=== PATIENT | male | born 1970 | race Caucasian/White ===

== ENCOUNTER 2019-01-09 06:11 | Inpatient (IN) | payer OTHER ==
[2019-01-08 15:45] VITALS: BMI 28.5
[2019-01-09] MEDS ORDERED: fentaNYL CITRATE 250 MCG/5 ML VIAL ONE (07:03)
[2019-01-09] MEDS ORDERED: SUCCINYLCHOLINE CHLORIDE 200 MG/10 ML SYRINGE ONE (07:04)
[2019-01-09] MEDS ORDERED: ROCURONIUM BROMIDE 50 MG/5 ML VIAL ONE (07:04)
[2019-01-09] MEDS ORDERED: PROPOFOL 20 ML ONE ×13 (07:04→10:53)
[2019-01-09] MEDS ORDERED: DEXAMETHASONE SOD PHOSPHATE 4 MG/1 ML VIAL ONE (07:05)
[2019-01-09] MEDS ORDERED: ONDANSETRON 4 MG/2 ML VIAL ONE (07:05)
[2019-01-09] MEDS ORDERED: LIDOCAINE HCL/PF 2% SDV 5ML VIAL ONE (07:05)
[2019-01-09] MEDS ORDERED: LIDOCAINE 1%-EPI 1:100,000 30 ML MDV IJ ONE (07:08)
[2019-01-09] MEDS ORDERED: THROMBIN (BOVINE) 5,000 UNIT VIAL TP ONE (07:08)
[2019-01-09] MEDS ORDERED: BUPIVACAINE HCL/PF 0.5% (5MG/ML) 10 ML VIAL ONE ×2 (07:08→07:24)
[2019-01-09] MEDS ORDERED: BUPIVACAINE LIPOSOME/PF (EXPAREL) 266 MG/20 ML VIAL ONE (07:23)
[2019-01-09] MEDS ORDERED: MIDAZOLAM HCL 2 MG/2 ML SINGLE DOSE VIAL ONE ×3 (07:24→08:08)
[2019-01-09] MEDS ORDERED: GENTAMICIN SO4 80 MG/2 ML VIAL ONE ×2 (07:27→10:54)
[2019-01-09] MEDS ORDERED: SCOPOLAMINE HYDROBROMIDE 1 PATCH PATCH.TD72 ONE (07:42)
--- NOTE | 2019-01-09 08:09 | HP ---
History & Physical Update - History History: No Change - Physical Physical: No Change - Assessment Assessment: No Change - Plan Plan: No Change
[2019-01-09] MEDS ORDERED: HYDROmorphone HCl 2 MG/ML VIAL ONE (08:28)
[2019-01-09] MEDS ORDERED: KETAMINE HCL 200 MG/20 ML VIAL ONE (08:29)
[2019-01-09] MEDS ORDERED: VANCOMYCIN 1,000 MG VIAL (RESTRICTED TO ID ONLY) IVPB ONE (08:30)
[2019-01-09] MEDS ORDERED: VANCOMYCIN 1,000 MG VIAL (RESTRICTED TO ID ONLY) ONE (08:46)
[2019-01-09] MEDS ORDERED: ceFAZolin SODIUM 1 GM VIAL ONE (08:46)
[2019-01-09] MEDS ORDERED: ceFAZolin SODIUM 1 GM VIAL IVPB ONE (08:50)
[2019-01-09] MEDS ORDERED: GENTAMICIN SO4 80 MG/2 ML VIAL IVPB ONE (09:03)
[2019-01-09] MEDS ORDERED: BACITRACIN 50,000 UNITS VIAL TP ONE (09:03)
[2019-01-09] MEDS ORDERED: ONDANSETRON 4 MG/2 ML VIAL IVPUSH PRN ×2 (09:19→12:00)
[2019-01-09] MEDS ORDERED: DOCUSATE SODIUM 100 MG CAPSULE (FP) PO PRN (09:24)
[2019-01-09] MEDS ORDERED: NALOXONE HCL 0.4 MG/ML VIAL IVPUSH PRN (09:24)
[2019-01-09] MEDS ORDERED: ACETAMINOPHEN 1000 MG/100 ML VIAL (NON FORMULARY) IVPB SCH (09:30)
[2019-01-09] MEDS ORDERED: LACTATED RINGERS SOLUTION 1,000 ML IV SCH (09:30)
[2019-01-09] MEDS ORDERED: GLYCOPYRROLATE 0.2 MG/1 ML VIAL ONE (10:25)
[2019-01-09] MEDS ORDERED: NEOSTIGMINE METHYLSULFATE 0.5 MG/1 ML - 10 ML MDV ONE (10:25)
[2019-01-09] MEDS ORDERED: diphenhydrAMINE HCL 25 MG CAPSULE (FP) PO PRN (12:00)
[2019-01-09] MEDS ORDERED: ONDANSETRON 4 MG/2 ML VIAL IVPUSH ONE (12:15)
[2019-01-09] MEDS ORDERED: diazePAM 5 MG TABLET ONE (12:51)
[2019-01-09] MEDS ORDERED: diazePAM 5 MG TABLET PO ONE (13:00)
[2019-01-09] MEDS ORDERED: traMADol HCL 50 MG TABLET PO ONE (13:00)
[2019-01-09] MEDS ORDERED: PATIENT'S OWN MEDICATION (NON-FORMULARY) (Dolutegravir/Rilpivirine [Juluca 50-25 Mg Tablet PO SCH (14:00)
--- NOTE | 2019-01-09 14:18 | PN ---
Progress Note, Physician Chief Complaint: patient seen s/p cervical spine surgery - Current Medication List Current Medications: Active Medications Acetaminophen (Ofirmev Injection -) 1,000 mg IVPB Q6H [facility] Stop: 01/10/19 04:31 Aspirin (Ecotrin -) 81 mg PO DAILY [facility] Diazepam (Valium -) 5 mg PO Q8H [facility] Diphenhydramine HCl (Benadryl -) 25 mg PO Q6H PRN PRN Reason: FOR ITCHING Docusate Sodium (Colace -) 100 mg PO TID [facility] Duloxetine HCl (Cymbalta -) 60 mg PO DAILY [facility] Fentanyl (Sublimaze Injection -) 50 mcg IVPUSH [id number] PRN PRN Reason: PAIN-PACU ORDER X 4 DOSES ONLY Heparin Sodium (Porcine) (Heparin -) 5,000 unit SQ TID [facility] Hydromorphone HCl (Dilaudid -) 2 mg PO Q3H PRN PRN Reason: PAIN LEVEL 4 - 6 Hydromorphone HCl (Dilaudid -) 4 mg PO Q3H PRN PRN Reason: PAIN LEVEL 7 - 10 Cefazolin Sodium (Ancef 1 Gm Premixed Ivpb -) 1 gm in 50 mls @ 100 mls/hr IVPB Q8H-IV [facility] Stop: 01/10/19 16:59 Lactated Ringer's (Lactated Ringers Solution) 1,000 ml in 1,000 mls @ 125 mls/ hr IV ASDIR [facility] Naloxone HCl (Narcan -) 0.4 mg IVPUSH PRN PRN PRN Reason: RESPIRATORY DEPRESSION Non-Formulary Medication (Dolutegravir/Rilpivirine [Juluca 50-25 Mg Tablet]) 1 each PO DAILY [facility] Ondansetron HCl (Zofran Injection) 4 mg IVPUSH Q6H [facility] Stop: 01/10/19 03:31 Ondansetron HCl (Zofran Injection) 4 mg IVPUSH Q6H PRN PRN Reason: NAUSEA Rosuvastatin Calcium (Crestor -) 40 mg PO DAILY [facility] Tramadol HCl (Ultram -) 50 mg PO Q6H [facility] - Objective Vital Signs: Vital Signs Temperature 98.3 F 01/09/19 11:45 Pulse Rate 70 01/09/19 12:15 Respiratory Rate 18 01/09/19 12:15 Blood Pressure 134/72 01/09/19 12:15 O2 Sat by Pulse Oximetry (%) 100 01/09/19 12:15 Constitutional: Yes: Calm Neck: Yes: Other (neck brace with yovanny drain serosangionus drainage) Cardiovascular: Yes: Regular Rate and Rhythm, S1, S2 Respiratory: Yes: CTA Bilaterally Gastrointestinal: Yes: Normal Bowel Sounds, Soft Edema: No Neurological: Yes: Alert, Oriented, Other (moving all 4 extremites sensory intact) Problem List - Problems (1) S/P spinal surgery Assessment/Plan: c6 corpectomy ,lordosis correction pain control neck brace stool softners clear liquid diet ct scan of c spine done dvt ppx Code(s): Z98.890 - OTHER SPECIFIED POSTPROCEDURAL STATES (2) HLD (hyperlipidemia) Assessment/Plan: statin Code(s): E78.5 - HYPERLIPIDEMIA, UNSPECIFIED
--- NOTE | 2019-01-09 14:33 | OP ---
Operative Note - Note: Operative Date: 01/09/19 Pre-Operative Diagnosis: Cervical spondylosis Operation: s/p Cervical C6 corpectomy with CAGE and anterior plate placement Surgeon: Noe Campbell Division Sales Manager: Parisa Gilbert Anesthesiologist/ASSOCIATE PROFESSOR OF PSYCHOLOGY: Nayeli Levi Anesthesia: General Estimated Blood Loss (mls): 50 Drains, Volume Out (mls): 200 (hernandez) Fluid Volume Replaced (mls): 1,000 Operative Report Dictated: Yes
[2019-01-09] MEDS: ONDANSETRON 4 MG/2 ML VIAL IVPUSH SCH ×2 (15:07→21:59)
[2019-01-09] MEDS: traMADol HCL 50 MG TABLET PO SCH ×2 (15:08→21:58)
[2019-01-09] MEDS: LACTATED RINGERS SOLUTION 1,000 ML/1,000 ML INFUS.BAG IV SCH (15:15)
[2019-01-09] MEDS: DOCUSATE SODIUM 100 MG CAPSULE (FP) PO SCH ×3 (15:16→22:15)
[2019-01-09] MEDS: HEPARIN NA (PORCINE) 5,000 UNITS/ML 1ML VIAL SQ SCH ×2 (15:16→22:00)
[2019-01-09] MEDS: diazePAM 5 MG TABLET PO SCH ×2 (16:52→19:27)
[2019-01-09] MEDS: ACETAMINOPHEN 1000 MG/100 ML VIAL (NON FORMULARY) IVPB SCH ×2 (16:52→22:31)
[2019-01-09] MEDS: HYDROmorphone HCL 2 MG TABLET PO PRN (16:53)
[2019-01-09] MEDS: RILPIVIRINE HCL 25 MG TABLET PO SCH (16:59)
[2019-01-09] MEDS: DOLUTEGRAVIR SODIUM 50 MG TABLET (NON-FORMULARY) PO SCH (16:59)
[2019-01-09] MEDS ORDERED: PT OWN MED DRAWER 7, Y5N ONE (18:40)
[2019-01-09] MEDS: CEFAZOLIN 1 GM/D5W 1 GM/50 ML BAG IVPB SCH ×2 (18:43→19:53)
[2019-01-09] MEDS ORDERED: HEPARIN NA (PORCINE) 5,000 UNITS/ML 1ML VIAL SQ SCH (20:00)
[2019-01-09] MEDS: diazePAM 5 MG TABLET PO PRN (20:16)
[2019-01-10] MEDS ORDERED: PT OWN MED DRAWER 7, Y5N ONE (00:55)
[2019-01-10] MEDS ORDERED: ceFAZolin SODIUM 1 GM VIAL ONE ×2 (01:37→09:56)
[2019-01-10] MEDS ORDERED: DEXTROSE 5%-WATER - 50 ML IVPB ONE ×2 (01:37→09:56)
[2019-01-10] MEDS: CEFAZOLIN 1 GM in DEXTROSE 5%-WATER - 50 ML IVPB SCH ×2 (01:58→09:58)
[2019-01-10] MEDS: traMADol HCL 50 MG TABLET PO SCH ×3 (03:34→09:30)
[2019-01-10] MEDS: ONDANSETRON 4 MG/2 ML VIAL IVPUSH SCH ×2 (03:36→09:30)
[2019-01-10] MEDS: LACTATED RINGERS SOLUTION 1,000 ML/1,000 ML INFUS.BAG IV SCH ×2 (03:38→13:22)
[2019-01-10] MEDS: diazePAM 5 MG TABLET PO PRN ×2 (03:44→09:58)
[2019-01-10] MEDS: ACETAMINOPHEN 1000 MG/100 ML VIAL (NON FORMULARY) IVPB SCH (04:30)
[2019-01-10] MEDS: HEPARIN NA (PORCINE) 5,000 UNITS/ML 1ML VIAL SQ SCH ×2 (06:47→13:29)
[2019-01-10] MEDS: DOCUSATE SODIUM 100 MG CAPSULE (FP) PO SCH ×2 (06:57→13:28)
[2019-01-10 07:53] LABS: HEMATOCRIT 39.4 % (35.4-49); HEMOGLOBIN 13.4 GM/dL (11.7-16.9); MCH 31.2 pg (25.7-33.7); MCHC 34.1 g/dl (32.0-35.9); MEAN CELL VOLUME 91.5 fl (80-96); MEAN PLT VOLUME 8.5 fl (7.5-11.1); RBC 4.31 M/mm3 (4.00-5.60); RDW 13.3 % (11.9-15.9); WHITE BLOOD COUNT 11.6 K/mm3 (4.0-10.0)
--- NOTE | 2019-01-10 09:00 | PN ---
Progress Note (short form) - Note Progress Note: POD 1, s/p Cervical C6 corpectomy with CAGE and anterior plate placement Pt seen and examined. Reports significant pain overnight which was finally relieved with Dilaudid PO and additional Valium. Has been oob to the restroom without issue, voiding. Tolerating soft diet. Reports improvement in his UE tingling. Denies cp/sob, n/v/d, calf pain/edema. Vital Signs Temp 97.4 F L 01/10/19 02:00 Pulse 88 01/10/19 02:00 Resp 16 01/10/19 02:00 BP 123/73 01/10/19 02:00 Pulse Ox 97 01/09/19 21:00 Intake & Output 01/09/19 01/09/19 01/10/19 11:59 23:59 11:59 Intake Total 1000 1040 1900 Output Total 250 110 Balance 150 821 9360 Intake: IV 4131 496 4229 LACTATED RINGERS SOLUTION 500 1300 1,000 ml In 1,000 ml @ 125 mls/hr IV ASDIR [facility] Rx#:[id number] IVPB 100 300 Oral 240 300 Output: Drainage 110 Right Chest 50 Urine 200 Estimated Blood Loss 50 Other: Voiding Method Toilet # Unmeasured Voids Void 4 CBC, BMP 01/10/19 07:00 Gen: awake, alert, nad Neck: Dressing with scant dry drainage on right side. No surrounding ecchymosis/ erythema or hematoma. Drain in place, tubing stripped. Approx 50ml serosanguinous drainage in reservoir (has not been emptied since last night). Resp: unlabored on RA Neuro: B/L UE's 5/5 blue line trimmer strength/biceps/triceps. SILT b/l. B/L LE's 5/5 dorsi/ plantarflexion, hip flexion/extension. SILT b/l A/P: 48 y/o M with cervical spondylosis now POD 1, s/p Cervical C6 corpectomy with CAGE and anterior plate placement. Afebrile, VSS. Labs pending. YECENIA output approx 50ml overnight -Will remove drain this AM. -Continue current pain regimen: Dilaudid 2/4mg PO q3 hrs prn, Tramadol 50mg q6 hrs prn -Continue abx while drain is in place (Ancef 1g q8hrs) -Bowel regimen -Continue neurochecks -Keep brace in place 23/24 hrs per day -soft diet -Plan for d/c later today Drain removed without issue. Taken off of suction, tip intact. Pt tolerated well. Incision c/d/i, no erythema or drainage, no hematoma. Re-dressed with 4x4 and tegaderm. d/w attending Dr Hooker and PIPE [employer]PER Amilcar Christiansen
[2019-01-10 09:03] LABS: CALCIUM 8.8 mg/dL (8.5-10.1); CREATININE 0.9 mg/dL (0.55-1.3); POTASSIUM 4.4 mmol/L (3.5-5.1)
[2019-01-10] MEDS ORDERED: ONDANSETRON 4 MG/2 ML VIAL IVPUSH PRN (09:04)
[2019-01-10] MEDS: RILPIVIRINE HCL 25 MG TABLET PO SCH (09:31)
[2019-01-10] MEDS: DOLUTEGRAVIR SODIUM 50 MG TABLET (NON-FORMULARY) PO SCH (09:31)
[2019-01-10] MEDS ORDERED: DULoxetine HCL 30 MG CAPSULE.DR PO SCH (10:00)
[2019-01-10] MEDS ORDERED: ASPIRIN COATED 81 MG TABLET.EC PO SCH (10:00)
[2019-01-10] MEDS ORDERED: ROSUVASTATIN CA 20 MG TABLET (FP) PO SCH (10:00)
[2019-01-10] MEDS ORDERED: PATIENT'S OWN MEDICATION (NON-FORMULARY) (Dolutegravir/Rilpivirine [Juluca 50-25 Mg Tablet PO SCH ×2 (10:00)
[2019-01-10 11:25] LABS: PLATELET COUNT 247 K/MM3 (134-434)
[2019-01-10] MEDS: HYDROmorphone HCL 2 MG TABLET PO PRN (13:29)
--- NOTE | 2019-01-10 14:37 | PN ---
Progress Note, Physician Chief Complaint: s/p c corpectomy under general aensthesia History of Present Illness: post op day one with bilarteral MCP blocks for post op pain control. - Current Medication List Current Medications: Active Medications Aspirin (Ecotrin -) 81 mg PO DAILY [facility] Last Admin: 01/10/19 09:30 Dose: Not Given Diazepam (Valium -) 10 mg PO Q6H PRN PRN Reason: WITHDRAWAL(CONT SUBST) Last Admin: 01/10/19 09:58 Dose: 10 mg Diphenhydramine HCl (Benadryl -) 25 mg PO Q6H PRN PRN Reason: FOR ITCHING Docusate Sodium (Colace -) 100 mg PO TID [facility] Last Admin: 01/10/19 13:28 Dose: Not Given Duloxetine HCl (Cymbalta -) 60 mg PO DAILY [facility] Last Admin: 01/10/19 09:10 Dose: Not Given Fentanyl (Sublimaze Injection -) 50 mcg IVPUSH [id number] PRN PRN Reason: PAIN-PACU ORDER X 4 DOSES ONLY Heparin Sodium (Porcine) (Heparin -) 5,000 unit SQ TID [facility] Last Admin: 01/10/19 13:29 Dose: Not Given Hydromorphone HCl (Dilaudid -) 2 mg PO Q3H PRN PRN Reason: PAIN LEVEL 4 - 6 Last Admin: 01/10/19 13:29 Dose: 2 mg Hydromorphone HCl (Dilaudid -) 4 mg PO Q3H PRN PRN Reason: PAIN LEVEL 7 - 10 Last Admin: 01/10/19 09:59 Dose: 4 mg Lactated Ringer's (Lactated Ringers Solution) 1,000 ml in 1,000 mls @ 125 mls/ hr IV ASDIR [facility] Last Admin: 01/10/19 13:22 Dose: Not Given Cefazolin Sodium 1 gm/ (Dextrose) 50 mls @ 100 mls/hr IVPB Q8H-IV [facility] Stop: 01/10/19 16:59 Last Admin: 01/10/19 09:58 Dose: 100 mls/hr Naloxone HCl (Narcan -) 0.4 mg IVPUSH PRN PRN PRN Reason: RESPIRATORY DEPRESSION Ondansetron HCl (Zofran Injection) 4 mg IVPUSH Q6H PRN PRN Reason: NAUSEA Rosuvastatin Calcium (Crestor -) 40 mg PO DAILY [facility] Last Admin: 01/10/19 09:11 Dose: Not Given Tramadol HCl (Ultram -) 50 mg PO Q6H [facility] Last Admin: 01/10/19 09:30 Dose: Not Given - Objective Vital Signs: Vital Signs Temperature 97.4 F L 01/10/19 02:00 Pulse Rate 99 H 01/10/19 09:32 Respiratory Rate 18 01/10/19 09:32 Blood Pressure 116/73 01/10/19 09:32 O2 Sat by Pulse Oximetry (%) 96 01/10/19 09:00 Constitutional: Yes: Well Nourished Cardiovascular: Yes: WNL Respiratory: Yes: WNL Gastrointestinal: Yes: WNL Labs: CBC, BMP 01/10/19 07:00 01/10/19 07:00 Assessment/Plan Pain controlled, No adverse anesthesia effects, dept of [facility] will sign off care at this time.
--- NOTE | 2019-01-10 14:47 | DS ---
"Physical Examination Vital Signs: Vital Signs Temperature 97.4 F L 01/10/19 02:00 Pulse Rate 99 H 01/10/19 09:32 Respiratory Rate 18 01/10/19 09:32 Blood Pressure 116/73 01/10/19 09:32 O2 Sat by Pulse Oximetry (%) 96 01/10/19 09:00 Findings/Remarks: Patient is a 48 y/o male s/p C6 corpectomy, lordosis correction. Constitutional: Yes: No Distress, Calm Eyes: Yes: Conjunctiva Clear HENT: Yes: Atraumatic Neck: Yes: Other (c-collar) Cardiovascular: Yes: Regular Rate and Rhythm Respiratory: Yes: Regular, CTA Bilaterally Gastrointestinal: Yes: Normal Bowel Sounds, Soft Musculoskeletal: Yes: WNL Extremities: Yes: WNL Edema: No Neurological: Yes: Alert, Oriented Psychiatric: Yes: Alert, Oriented Labs: CBC, BMP 01/10/19 07:00 01/10/19 07:00 Discharge Summary Reason For Visit: CERVICAL SPONDYLOSIS Current Active Problems HLD (hyperlipidemia) (Acute) S/P spinal surgery (Acute) Hospital Course: see progress notes Laboratory Tests 01/09/19 01/09/19 01/10/19 06:22 07:47 07:00 WBC 11.6 H RBC 4.31 Hgb 13.4 Hct 39.4 MCV 91.5 MCH 31.2 MCHC 34.1 RDW 13.3 Plt Count 247 MPV 8.5 Sodium Potassium Chloride Carbon Dioxide Anion Gap BUN Creatinine Est GFR (CKD-EPI)AfAm Est GFR (CKD-EPI)NonAf Random Glucose Calcium Blood Type A POSITIVE A POSITIVE Antibody Screen Negative 01/10/19 07:00 WBC RBC Hgb Hct MCV MCH MCHC RDW Plt Count MPV Sodium 140 Potassium 4.4 Chloride 104 Carbon Dioxide 29 Anion Gap 7 L BUN 12 Creatinine 0.9 Est GFR (CKD-EPI)AfAm 118.30 Est GFR (CKD-EPI)NonAf 102.07 Random Glucose 131 H Calcium 8.8 Blood Type Antibody Screen Active Medications Generic Name Dose Route Start Last Admin Trade Name Freq PRN Reason Stop Dose Admin Aspirin 81 mg 01/10/19 10:00 01/10/19 09:30 Ecotrin - PO Not Given DAILY [facility] Diazepam 10 mg 01/09/19 19:10 01/10/19 09:58 Valium - PO 10 mg Q6H PRN Administration WITHDRAWAL(CONT SUBST) Diphenhydramine HCl 25 mg 01/09/19 12:00 Benadryl - PO Q6H PRN FOR ITCHING Docusate Sodium 100 mg 01/09/19 14:00 01/10/19 13:28 Colace - PO Not Given TID [facility] Duloxetine HCl 60 mg 01/10/19 10:00 01/10/19 09:10 Cymbalta - PO Not Given DAILY [facility] Fentanyl 50 mcg 01/09/19 09:19 Sublimaze Injection - IVPUSH [id number] PRN PAIN-PACU ORDER X 4 DOSES ONLY Heparin Sodium (Porcine) 5,000 unit 01/09/19 14:00 01/10/19 13:29 Heparin - SQ Not Given TID [facility] Hydromorphone HCl 2 mg 01/09/19 09:24 01/10/19 13:29 Dilaudid - PO 2 mg Q3H PRN Administration PAIN LEVEL 4 - 6 Hydromorphone HCl 4 mg 01/09/19 09:24 01/10/19 09:59 Dilaudid - PO 4 mg Q3H PRN Administration PAIN LEVEL 7 - 10 Lactated Ringer's 1,000 ml in 1,000 mls @ 125 mls/hr 01/09/19 12:00 01/10/19 13:22 Lactated Ringers Solution IV Not Given ASDIR [facility] Cefazolin Sodium 1 gm/ 50 mls @ 100 mls/hr 01/10/19 00:59 01/10/19 09:58 Dextrose IVPB 01/10/19 16:59 100 mls/hr Q8H-IV [facility] Administration Naloxone HCl 0.4 mg 01/09/19 09:24 Narcan - IVPUSH PRN PRN RESPIRATORY DEPRESSION Ondansetron HCl 4 mg 01/10/19 09:04 Zofran Injection IVPUSH Q6H PRN NAUSEA Rosuvastatin Calcium 40 mg 01/10/19 10:00 01/10/19 09:11 Crestor - PO Not Given DAILY [facility] Tramadol HCl 50 mg 01/09/19 09:30 01/10/19 09:30 Ultram - PO Not Given Q6H [facility] Condition: Stable - Instructions Diet, Activity, Other Instructions: Post Operative Instructions Physical Activity Resume your normal everyday activity as tolerated. No heavy lifting or exercise until seen by your surgeon. You may walk unlimited amounts and climb stairs. You may resume driving the car when you feel safe and comfortable behind the wheel and you are no longer wearing your brace. Do not operate a vehicle while taking narcotic medication. Brace If you had neck surgery, wear surgical collar 23 hr/day. Remove to shower only. Wound Care Keep your incision clean, dry and covered at all times. Apply an occlusive dressing (Saran wrap or Tegaderm) when showering to avoid getting your incision wet. Do not submerge incision or apply ointments or creams. The jp will be removed in the office in 10-14 days post-op. Diet There are no dietary restrictions. Eat healthy, high-fiber foods. Drink 6-8 glasses of liquid each day. This will assist in keeping your bowels regular. Pain Management You may take Tylenol or acetaminophen. Any pain prescription medication ordered should be taken as prescribed for moderate to severe pain. Avoid any ibuprofen (Motrin, Advil, Aleve, Toradol, etc) for 3 months unless otherwise discussed with your surgeon. Call Dr Campbell for any of the following: Severe pain not relieved by medication Fever of 101 or higher Excessive bleeding or drainage on dressing Inability to urinate Any chest pain or shortness of breath, seek Emergency Care. Call the office to confirm a post-operative appointment for 2-3 weeks post-op Noe Campbell MD [place] [facility] [place] [address] [facility] [employer] Checked prior too escribe of narcotics for pain management. This report was requested by: Estevan Cade | Reference #: [id number] [facility] [employer]: This report was requested by: Maxine Christiansen | Reference #: [id number] Follow up with PMD in 1 week follow up with Dr Campbell in 2 weeks continue with medication as prescribed return to ER if severe pain, chest pain, respiratory failure, fever Referrals: Noe Campbell MD, [facility] [Staff Physician] - Disposition: HOME - Home Medications Comprehensive Discharge Medication List: Ambulatory Orders Aspirin [Aspirin EC] 81 mg PO DAILY 01/08/19 Dolutegravir/Rilpivirine [Juluca 50-25 mg Tablet] 1 each PO DAILY 01/08/19 Duloxetine HCl [Cymbalta] 60 mg PO DAILY 01/08/19 Multivitamin [Multiple Vitamins] 1 each PO DAILY 01/08/19 [place]-3 Fatty Acids/Fish Oil [Fish Oil 1,000 mg Capsule] 1 each PO DAILY Rosuvastatin Calcium [Crestor] 40 mg PO DAILY 01/08/19 Diazepam [Valium] 10 mg PO Q6H PRN #16 tablet MDD 4 01/10/19 Docusate Sodium [Colace -] 100 mg PO TID #90 capsule 01/10/19 Dolutegravir Sodium [Tivicay] 50 mg PO DAILY tablet 01/10/19 HYDROmorphone [Dilaudid -] 2 mg PO Q4H PRN #12 tablet MDD 6 01/10/19 Ondansetron [Zofran Odt -] 4 mg SL TID #21 od.tablet 01/10/19 Rilpivirine HCl [Edurant] 25 mg PO DAILY tablet 01/10/19"
[2019-01-10 15:38] VITALS: BP 131/76; PULSE 95; TEMP 98.2
== END 2019-01-10 15:55 | disposition home or self-care (01) | DRG 473 ==
LOC: JSAMEDAYSX 06:11 → J4S 13:55
PROVIDERS: ADMIT Family Medicine; ATTEND Family Medicine
PROC: 0PB30ZZ Excision of Cervical Vertebra, Open Approach (ICD-10-PCS; 2019-01-09)
PROC: 0RG407J Fusion of Cervicothoracic Vertebral Joint with Autologous Tissue Substitute, Posterior Approach, Anterior Column, Open Approach (ICD-10-PCS; 2019-01-09)
PROC: 0RG207J Fusion of 2 or more Cervical Vertebral Joints with Autologous Tissue Substitute, Posterior Approach, Anterior Column, Open Approach (ICD-10-PCS; principal; 2019-01-09 08:00)
DX: M47.12 Other spondylosis with myelopathy, cervical region (principal); M47.13 Other spondylosis with myelopathy, cervicothoracic region; M40.50 Lordosis, unspecified, site unspecified; E78.5 Hyperlipidemia, unspecified
CPT/HCPCS: 36415; 72125-TC; 76000-TC-FY; 80048; 85027; 86850; 86900; 86901; 94010; 94760; 97116-GP; 97161-GP; J0131; J1644